=== PATIENT | male | born 1945 | race Caucasian/White ===

== ENCOUNTER 2020-06-04 14:51 | Emergency (ER) | payer MEDICARE, OTHER ==
[~2020-06-04] VITALS: Ht 180.3 cm; Wt 130.0 kg
[2020-06-04] MEDS ORDERED: MORPHINE SULFATE 4 MG/ML, 1ML IVPush ONE ×2 (15:30→17:00)
[2020-06-04] MEDS ORDERED: ONDANSETRON 2MG/ML, 2ML IVPush ONE (15:30)
[2020-06-04] MEDS ORDERED: MORPHINE SULFATE 4 MG/ML, 1ML ONE ×3 (15:34→18:11)
[2020-06-04] MEDS ORDERED: ONDANSETRON 2MG/ML, 2ML ONE (15:34)
--- NOTE | 2020-06-04 15:38 | NUR ---
PIV PLACED, LABS DRAWN AND COLLECTED BY SILVER STEWARD. MEDS ADMIN PER AUG. DAUGHTER AT BEDSIDE.
[2020-06-04 15:44] LABS: BASOPHILS % (AUTO) 1 % (0-1); EOSINOPHILS % (AUTO) 0 % (1-7); LYMPHOCYTES % (AUTO) 9 % (22-44); MEAN CORPUSCULAR HEMOGLOBIN 32.2 pg (27.5-34.5); MEAN CORPUSCULAR HGB CONC 34.2 g/dL (33.2-36.2); MEAN PLATELET VOLUME 7.3 fL (7.4-10.4); MONOCYTES % (AUTO) 8 % (2-9); NEUTROPHILS % (AUTO) 81 % (42-75); PLATELET COUNT 308 x10^3/uL (130-400); RED BLOOD COUNT 4.46 x10^6/uL (4.38-5.82); RED CELL DISTRIBUTION WIDTH 14.2 % (9.4-14.8)
[2020-06-04] MEDS ORDERED: ALOG25TA PO (15:50)
[2020-06-04] MEDS ORDERED: ATEN50TA41 PO (15:50)
[2020-06-04] MEDS ORDERED: GLIP5TAB10 PO (15:50)
[2020-06-04] MEDS ORDERED: FURO40TA6 PO (15:50)
[2020-06-04] MEDS ORDERED: ASPI81TA45 PO (15:50)
[2020-06-04] MEDS ORDERED: AMLO-211 PO (15:50)
[2020-06-04] MEDS ORDERED: HYDR-3237 PO (15:50)
[2020-06-04] MEDS ORDERED: EMPA25TA PO (15:50)
[2020-06-04] MEDS ORDERED: SIMV20TA19 PO (15:50)
[2020-06-04] MEDS ORDERED: METF1000 PO (15:50)
[2020-06-04 15:51] LABS: MD NO
--- NOTE | 2020-06-04 15:51 | NUR ---
PT AT XRAY
[2020-06-04 15:52] LABS: ANION GAP 8 mmol/L (5-15); CALCIUM 9.9 mg/dL (8.5-10.1); CHLORIDE 105 mmol/L (98-107); CREATININE 1.63 mg/dL (0.7-1.3)
--- NOTE | 2020-06-04 16:24 | NUR ---
REFUSED ICE THERAPY
[2020-06-04 16:30] VITALS: BP 168/81
--- NOTE | 2020-06-04 16:32 | NUR ---
RECEIVED V/O FROM CHANTAL THOMPSON, FOR MORPHINE SULFATE 4MG IV ONCE. ARCHEOLOGIST PER ORDER.
--- NOTE | 2020-06-04 16:44 | NUR ---
ALL RESULTS ARE BACK AT THIS TIME. CHART UP FOR RECHECK.
[2020-06-04] MEDS ORDERED: MORPHINE SULFATE 4 MG/ML, 1ML IVPush PRN (17:00)
--- NOTE | 2020-06-04 17:45 | NUR ---
BRANCH ACCOUNT EXECUTIVE WRAPPED WITH HONEY WRAP.
--- NOTE | 2020-06-04 17:45 | NUR ---
DISCHARGE INSTRUCTIONS REVIEWED
--- NOTE | 2020-06-04 17:58 | NUR ---
PT AND DAUGHTER UNSURE OF DISCHARGE DUE TO LEG DISCOMFORT. [facility]MD AND HOSPITAL CHIEF FINANCIAL OFFICER NOTIFIED. POC DISCUSSED WITH PT AND DAUGHTER.
== END 2020-06-04 18:26 | disposition home or self-care (01) ==
LOC: ED 16:52
DX: G89.11 Acute pain due to trauma (principal); M54.5 Low back pain; M25.462 Effusion, left knee; M51.36 Other intervertebral disc degeneration, lumbar region; M16.0 Bilateral primary osteoarthritis of hip; M17.0 Bilateral primary osteoarthritis of knee; R07.89 Other chest pain; R51.9 Headache, unspecified; I10 Essential (primary) hypertension; I45.10 Unspecified right bundle-branch block; E11.9 Type 2 diabetes mellitus without complications
CPT/HCPCS: 29540; 36415; 72110; 73523; 73564; 80048; 85025; 93005; 96374; 96375; 96376; 99285; J2270; J2405